=== PATIENT | female | born 1925 | race Caucasian/White ===

== ENCOUNTER 2017-01-19 10:27 | Inpatient (IN) | payer MEDICARE, OTHER ==
--- NOTE | 2017-01-19 11:40 | RAD ---
2 VIEWS LEFT HUMERUS: Date: 01/19/17 HISTORY: Left arm pain after a fall. FINDINGS: At the base of the humeral head, region of humeral neck, there is suggestion of a mildly impacted fr acture. No additional fracture is seen and there is no dislocation seen on this exam. IMPRESSION: Mildly impacted fracture proximal left humerus in region of humeral head. Dedicated views left shoul ama are suggested for further evaluation. POS: [facility]
--- NOTE | 2017-01-19 11:42 | RAD ---
THREE VIEWS LEFT ANKLE: COMPARISON: None. HISTORY: Left ankle pain from a fall this morning. FINDINGS: Three views of the left ankle show moderate diffuse soft tissue swelling. There is a ossific fragme nt adjacent to the medial malleolus which is likely sequelae from a remote trauma. No obvious acute fracture is seen. No dislocation is present. IMPRESSION: Soft tissue swelling without acute osseous abnormality. POS: [facility]
--- NOTE | 2017-01-19 11:46 | RAD ---
THREE VIEWS OF THE LEFT FOOT: COMPARISON: None. HISTORY: Left foot pain from a fall this morning. FINDINGS: Three views of the left foot show no evidence of acute fracture or dislocation. Mild soft tissue sw elling is seen. No degenerative changes are present. IMPRESSION: No evidence of acute osseous abnormality. POS: [facility]
--- NOTE | 2017-01-19 11:48 | RAD ---
FOUR VIEWS OF THE RIGHT KNEE: COMPARISON: None. HISTORY: Right knee pain after falling this morning. FINDINGS: Four views of the right knee show no evidence of acute fracture or dislocation. Small osteophytes a re seen in all 3 compartments consistent with osteoarthritis. Mild soft tissue swelling is seen. N o knee effusion is seen. IMPRESSION: Mild right osteoarthritis without acute osseous abnormality. POS: [facility]
--- NOTE | 2017-01-19 12:16 | RAD ---
THREE VIEWS OF THE LEFT SHOULDER 01/19/2017 HISTORY: Left shoulder pain, post fall this morning. COMPARISON: Compared to views of the humerus on 01/19/2017. FINDINGS: There is cortical irregularity involving the left proximal humerus, in the region of the neck of the humerus. Findings are most likely related to a mildly impacted fracture, better visualized on view s of the humerus, also obtained on this date. No additional fracture is seen. There is no evidence of a dislocation. There is osteopenia present. IMPRESSION: Mildly impacted fracture involving the left humeral neck. POS: [facility]
[2017-01-19] MEDS ORDERED: traMADol HCl 50 MG TAB PO PRN (13:03)
[2017-01-19] MEDS ORDERED: Levothyroxine Sodium 125 MCG TAB PO SCH (13:15)
[2017-01-19 14:11] VITALS: BMI 23.5
[2017-01-19] MEDS ORDERED: Milk Of Magnesia 30 ML UDCUP PO PRN (20:04)
[2017-01-19] MEDS ORDERED: Ondansetron ODT 4 MG TAB PO PRN (20:04)
[2017-01-19] MEDS: Naproxen 500 MG TAB PO SCH (21:04)
[2017-01-19] MEDS: Famotidine 20 MG TAB PO SCH (21:04)
[2017-01-19] MEDS: Gabapentin 100 MG CAP PO SCH (21:04)
--- NOTE | 2017-01-20 01:22 | HP ---
DATE OF ADMISSION: 01/19/2017 HISTORY OF PRESENT ILLNESS: Ms. Navarrete is a very pleasant 89-year-old white female that fell this morning. She ended up having a significant injury to her left forehead. She was seen in the emergency room, found to have a proximal humeral fracture. She was admitted to the hospital, because she had no one to go home to and she was unable to care for herself at all. The patient was admitted for neuro, vital signs, and pain management to my service. She is a regular patient of mine from [facility]. PAST MEDICAL HISTORY: Positive for: 1. Hypothyroidism. 2. Shingles in 12/2008 with left facial distribution. 3. Low back pain. 4. Neck pain. 5. Cervical anterior laminectomy, C7 through T1. 6. Knee pain with knee injection performed. PAST SURGICAL HISTORY: 1. Tonsillectomy, 1946. 2. Colonoscopy, 1997. FAMILY HISTORY: Reveals patient's father of colon cancer at age 67. Patient's mother at 81 of colon cancer. Patient had five brothers, four of lung cancer; three sisters, one had breast cancer, one diagnosed with regular cancer. PRESENT MEDICATIONS: Revealed the patient is on levothyroxine 125 mcg a day, Gabapentin 100 mg 1 at bedtime, tramadol 50 mg 1-2 tabs q.6 hours p.r.n. severe shingles pain, multivitamin, Lotrisone, and Naprosyn 500 mg b.i.d. ALLERGIES: The patient has allergies to PENICILLIN. SOCIAL HISTORY: Reveals the patient does not smoke, does not drink. REVIEW OF SYSTEMS: Positive for pain in the left shoulder. No fever, chills, sweats, weight change, or headaches are noted. Patient denies any visual changes. Patient denies any hearing changes. Patient denies any chest pain or rapid or slow heartbeat. Patient denies any significant edema. Denies any orthopnea or dyspnea on exertion. Patient denies any respiratory problems including cough, cold, or congestion. Patient denies any nausea, vomiting, diarrhea, bloody or black tarry stools. Patient denies any hematuria, nocturia , frequency, dysuria, or incontinence. Patient does complain of left shoulder pain and left arm pain. Denies any other significant problems. PHYSICAL EXAMINATION: GENERAL: Reveals a well-developed, well-nourished very pleasant white female in no apparent distress at this time. HEENT: Reveals normocephalic and nontraumatic cranium. Pupils are equally round and reactive. Extraocular movements intact. Nose and throat are slightly dry. NECK: Supple without masses, nodes, or bruits. CHEST: Clear to auscultation. No rales, rhonchi, or wheezes are heard. HEART: Reveals a regular rate and rhythm without murmurs, gallops, or rubs. ABDOMEN: Soft, nontender without organomegaly. Normal bowel sounds are noted. : Deferred. EXTREMITIES: Revealed left proximal humeral fracture and left ankle sprain. ASSESSMENT: 1. Fracture. 2. Pain management. 3. Hypothyroidism. 4. Neuropathy. 5. Shingles. 6. Arthritis. PLAN: The patient will be admitted at this time. We will control her pain with pain management,. We will consult PT and OT. We will start to arrange some type of assisted living or home nursing care.. QIAN
[2017-01-20] MEDS: traMADol HCl 50 MG TAB PO PRN ×2 (02:11→20:57)
[2017-01-20] MEDS: Levothyroxine Sodium 125 MCG TAB PO SCH (06:22)
[2017-01-20] MEDS: Gabapentin 100 MG CAP PO SCH ×2 (08:32→20:57)
[2017-01-20] MEDS: Famotidine 20 MG TAB PO SCH ×2 (08:32→20:57)
[2017-01-20] MEDS: Naproxen 500 MG TAB PO SCH ×2 (08:32→20:55)
[2017-01-20] MEDS: GLUCOSAMINE HCL 500 MG PO SCH (08:33)
--- NOTE | 2017-01-20 10:08 | PRG ---
DATE OF SERVICE: 01/20/2017 HISTORY OF PRESENT ILLNESS: Ms. Navarrete is a very pleasant 89-year-old white female that was at home when she somehow fell. She had a resultant proximal humeral neck fracture. She was seen in the em ergency room, evaluated and found to have a proximal humeral fracture and required sutures on her le ft forehead and on her chin. She is still extremely weak and physical therapy is working with her t o get her stronger. We are working with her insurance company to get her into a swing bed. SUBJECTIVE: The patient states she is doing better. She feels better. Her arm still hurts quite a bit. She ate part of her breakfast. She has no complaints today. PHYSICAL EXAMINATION: VITAL SIGNS: Blood pressure this morning 132/62, pulse 72-73, respirations 16-20, O2 sat 93-98%. T -max 97.8. GENERAL: This is a well-developed, well-nourished, very pleasant, thin white female in no apparent distress at this time. HEENT: Reveals normocephalic, nontraumatic cranium. The pupils are equally round and reactive. Ex traocular movements intact. Nose and throat are slightly dry. Left forehead sutures are looking go od, clear, not red, not swollen, not draining out pussy, the chin incision also seems to be healing well, not really inflamed or pussy. NECK: Supple, without masses, nodes or bruits. The patient is achy around her neck. LUNGS: Chest is clear to auscultation. No rales, rhonchi or wheezes are heard. No cough is noted. The patient has some mild chest wall tenderness from her fall, but otherwise, no problems. CARDIOVASCULAR: Heart reveals a regular rate and rhythm without murmurs, gallops or rubs. ABDOMEN: Soft, nontender, without organomegaly, normal bowel sounds are noted. No rebound or guard ing is noted. : Deferred. EXTREMITIES: Reveal left proximal humeral neck fracture. Left mild ankle sprain. IMPRESSION: 1. Left proximal humeral fracture. 2. Generalized weakness. 3. Pain management. 4. Hypothyroidism. 5. Neuropathy. 6. Shingles. 7. Arthritis. PLAN: 1. The patient will be continued for pain management. 2. We will discuss swing bed with the patient and her daughter and they are amenable to that. We w ill see if her insurance will allow that. . 3. Continue with pain control as needed. 4. Continue hanging arm sling for left proximal humeral fracture. 5. Continue DVT and stress ulcer prophylaxis. 6. Continue decubitus precautions. 7. Continue physical therapy and occupational therapy.
[2017-01-21] MEDS: traMADol HCl 50 MG TAB PO PRN (06:23)
[2017-01-21] MEDS: Levothyroxine Sodium 125 MCG TAB PO SCH (06:26)
[2017-01-21] MEDS: Naproxen 500 MG TAB PO SCH ×2 (08:00→21:43)
[2017-01-21] MEDS: Famotidine 20 MG TAB PO SCH ×2 (08:00→21:43)
[2017-01-21] MEDS: Gabapentin 100 MG CAP PO SCH ×2 (08:00→21:43)
[2017-01-21] MEDS: GLUCOSAMINE HCL 500 MG PO SCH (08:01)
--- NOTE | 2017-01-21 10:11 | PRG ---
DATE OF SERVICE: 01/21/2017 HISTORY OF PRESENT ILLNESS: Ms. Navarrete is a very pleasant 89-year-old white female that somehow fel l at home. She had resultant proximal humeral neck fracture. She was seen in the emergency room an d found to have quite a bit of pain, requiring sutures on her forehead and her chin. She was extrem kayode weak and unable to walk well and therefore she was admitted to the hospital for physical therapy , occupational therapy, pain control and monitoring of vital signs. SUBJECTIVE: The patient states she is doing well. She did wake up with quite a bit of pain this mo rning in her left arm and had to have a tramadol. She has no other complaints at this time. VITAL SIGNS: Blood pressure this morning is 140/68, pulse 66-72, respirations 16-18, O2 saturation 94-98%. T-max is 97.9. PHYSICAL EXAMINATION: GENERAL: This is a well-developed, well-nourished, very pleasant white female in no apparent distre ss at this time. HEENT: Reveals a contusion with laceration left forehead, approximately 2-1/2 inches long, and a la ceration involving the chin approximately 3/4 of an inch long was sutures in both places. Otherwise , nose, and throat are clear. NECK: Supple, without masses, nodes or bruits. CHEST: Clear to auscultation. No rales, rhonchi or wheezes are heard. CARDIOVASCULAR: Reveals a regular rate and rhythm without murmurs, gallops or rubs. ABDOMEN: Soft, nontender, without organomegaly, normal bowel sounds are noted. No rebound or guard ing is noted. : Deferred. EXTREMITIES: Reveal left proximal humeral neck fracture with pain and then left ankle sprain with p ain. IMPRESSION: 1. Left proximal humeral head and neck fracture. 2. Sprained left ankle. 3. Pain management. 4. Hypothyroidism. 5. Laceration of the left forehead and chin. 6. Neuropathy. 7. Shingles. 8. Arthritis. PLAN: 1. Continue pain management. 2. Continue physical therapy and occupational therapy. 3. Continue pain control. 4. Continue hanging arm sling for left proximal humeral fracture. 5. Continue DVT and stress ulcer prophylaxis. 6. Continue decubitus precautions. 7. Continue physical therapy and occupational therapy.
[2017-01-22] MEDS ORDERED: Levothyroxine Sodium 125 MCG TAB PO SCH (06:00)
[2017-01-22] MEDS: traMADol HCl 50 MG TAB PO PRN (06:25)
[2017-01-22 07:23] VITALS: BP 147/67; TEMP 97.4
[2017-01-22] MEDS: Naproxen 500 MG TAB PO SCH (10:00)
[2017-01-22] MEDS: Famotidine 20 MG TAB PO SCH (10:00)
[2017-01-22] MEDS: Gabapentin 100 MG CAP PO SCH (10:00)
[2017-01-22] MEDS: GLUCOSAMINE HCL 500 MG PO SCH (10:01)
--- NOTE | 2017-01-22 16:17 | DIS ---
DATE OF ADMISSION: 01/19/2017 DATE OF TRANSFER TO SWING BED: 01/22/2017 HISTORY OF PRESENT ILLNESS: Ms. Navarrete is a very pleasant 89-year-old white female that somehow fel l at home. She had a results of proximal humeral neck fracture. She was seen in the emergency room , found to have quite a bit of pain and significant weakness. She was admitted to the hospital for physical therapy, occupational therapy, pain control, and treatment of her fracture. She has done very well.. Today, she is walking around. Physical therapy and occupation therapy bot h noticed that she has difficulty with her right leg, seeming to shuffle and drag at times and that may be the culprit why she fell. She has no complaints today and states her left arm is feeling bet ter, especially with pain medicine. She is eating well and working well with therapy. She has not made any of her PT or OT gains or goals. OBJECTIVE: VITAL SIGNS: Today revealed blood pressure is 147/67, pulse 69-72, respirations 16-20, and O2 sat 9 6% to 100%, T-max of 98.2. PHYSICAL EXAMINATION: GENERAL: This is a well-developed, well-nourished, thin white female, in no apparent distress at th is time. HEENT: Reveals normocephalic, nontraumatic cranium. Pupils are equal, round, and reactive. Extrao cular movements intact. Nose and throat are slightly dry. NECK: Supple, without masses, nodes or bruits. CHEST: Clear to auscultation, no rales, rhonchi or wheezes are heard. HEART: Reveals a regular rate and rhythm without murmurs, gallops or rubs. ABDOMEN: Soft, nontender, without organomegaly. Normal bowel sounds. No rebound or guarding is no cesar. GENITOURINARY: Deferred. EXTREMITIES: 1. Left proximal humeral neck fracture with pain. 2. Left ankle sprain. 3. Weakness in the right leg. IMPRESSION: 1. Left proximal humeral head and neck fracture. 2. Sprain, left ankle. 3. Pain management. 4. Hypothyroidism. 5. Laceration in the left forehead and the chin. 5. Neuropathy. 6. Shingles. 7. Arthritis. PLAN: 1. Continue physical therapy and occupational therapy. 2. Continue pain management. 3. Continued pain control. 4. Continue hanging arm sling for left proximal humeral fracture. 5. Splinting for the left ankle. 6. Continue DVT and stress ulcer prophylaxis. 7. Continue decubitus precaution. 8. Continue physical therapy and occupational therapy. 9. Transfer to swing bed for continue therapy. DISCHARGE MEDICATIONS: Include the following, 1. Pepcid 20 mg b.i.d. 2. Gabapentin 100 mg b.i.d. 3. Levothyroxine 125 mcg a day. 4. Milk of Magnesia p.r.n. 5. Naprosyn 500 mg b.i.d. with food. 6. Lotrisone. 7. Glucosamine 1 each a day. 8. Tramadol 50 mg q.i.d. p.r.n. for mild to moderate pain.
== END 2017-01-22 11:13 | disposition swing bed (61) | DRG 563 ==
LOC: NAV ERS 10:27 → NAV ACUTE 12:55
PROVIDERS: ADMIT Family Medicine; ATTEND Family Medicine
PROC: 2W39XYZ Immobilization of Left Upper Extremity using Other Device (ICD-10-PCS; principal; 2017-01-19)
PROC: 0HQ1XZZ Repair Face Skin, External Approach (ICD-10-PCS; 2017-01-19)
DX: S42.292A Other displaced fracture of upper end of left humerus, initial encounter for closed fracture (principal); G62.9 Polyneuropathy, unspecified; B02.9 Zoster without complications; S93.402A Sprain of unspecified ligament of left ankle, initial encounter; S01.81XA Laceration without foreign body of other part of head, initial encounter; W01.0XXA Fall on same level from slipping, tripping and stumbling without subsequent striking against object, initial encounter; E03.9 Hypothyroidism, unspecified; M19.90 Unspecified osteoarthritis, unspecified site; R26.2 Difficulty in walking, not elsewhere classified; Z88.0 Allergy status to penicillin
CPT/HCPCS: G8978-GP-CJ; G8979-GP-CI

== ENCOUNTER 2017-01-22 09:52 | Inpatient (IN) | payer MEDICARE, OTHER ==
[2017-01-22] MEDS ORDERED: Milk Of Magnesia 30 ML UDCUP PO PRN (15:08)
[2017-01-22] MEDS ORDERED: Ondansetron ODT 4 MG TAB PO PRN (15:08)
[2017-01-22] MEDS: Gabapentin 100 MG CAP PO SCH (21:02)
[2017-01-22] MEDS: Naproxen 500 MG TAB PO SCH (21:02)
[2017-01-22] MEDS: traMADol HCl 50 MG TAB PO PRN (21:02)
[2017-01-22] MEDS: Famotidine 20 MG TAB PO SCH (21:02)
[2017-01-23] MEDS: Levothyroxine Sodium 125 MCG TAB PO SCH (06:13)
[2017-01-23] MEDS: Naproxen 500 MG TAB PO SCH ×2 (09:09→21:00)
[2017-01-23] MEDS: Famotidine 20 MG TAB PO SCH ×2 (09:09→21:00)
[2017-01-23] MEDS: Gabapentin 100 MG CAP PO SCH ×2 (09:09→21:00)
[2017-01-23] MEDS: GLUCOSAMINE 500 MG PO SCH (09:10)
[2017-01-23] MEDS ORDERED: Milk Of Magnesia 30 ML UDCUP PO PRN (09:58)
[2017-01-23] MEDS ORDERED: traMADol HCl 50 MG TAB PO PRN (09:58)
[2017-01-23] MEDS ORDERED: Ondansetron ODT 4 MG TAB PO PRN (09:58)
--- NOTE | 2017-01-23 15:30 | HP ---
DATE OF ADMISSION: 01/22/2017 HISTORY OF PRESENT ILLNESS: Ms. Navarrete is a very pleasant 89-year-old white female that unfortunate ly fell at home. She ended up having a laceration to the forehead and chin and also a proximal sandrita ral fracture. She was admitted to [facility] for physical therapy and occupational therapy. She is very weak and found that she would benefit significantly from continued physical th erapy and occupational therapy, so therefore she is admitted to the swing bed. PAST MEDICAL HISTORY: Positive for, 1. Low back pain. 2. Neck pain. 3. Fracture of the left proximal humerus. 4. Shingles in 2008 with facial distribution. 5. Hypothyroidism. 6. Cervical anterior laminectomy C7 through T1. 7. Knee pain. PAST SURGICAL HISTORY: 1. Tonsillectomy in 194. 2. Colonoscopy in 1997. FAMILY HISTORY: Reveals patient of colon cancer at age 69. Patient's mother of colon can cer at age 81. Patient has 5 brothers, out of which of cancer. Three sisters, one had breast cancer and one diagnosed with rectal cancer. PRESENT MEDICATIONS: Reveals the patient is presently on the followin. Levothyroxine 125 mcg daily. 2. Naprosyn 500 mg a day. 3. Gabapentin 100 mg at bedtime. 4. Tramadol 1-2 q.6 h with a Tylenol p.r.n., shingles pain. 5. Multivitamin daily. 6. Lotrisone as needed. ALLERGIES: Reveals patient is allergic to PENICILLIN. SOCIAL HISTORY: Reveals patient does not smoke, does not drink alcohol, does not use illicit drugs. REVIEW OF SYSTEMS: Reveal the patient complains of no fever, no chills, no sweats, no weight change s, no headaches. She does note that she has left shoulder pain. She denies any visual changes. Sh e denies any hearing changes. She does not use hearing aids. She denies any respiratory problems i ncluding rales, rhonchi, wheezes, cough or shortness of breath. She denies any chest pain, denies a ny heart pain, denies any indigestion, denies rapid or irregular heartbeat. Denies any nausea, vomi ting, diarrhea or constipation. Denies any bloody or black tarry stools. Denies any genitourinary problems including urgency, frequency, dysuria or hematuria. She states musculoskeletal dhillon, she d oes have left shoulder pain and left arm pain. She has no other significant arthritic-type pains. PHYSICAL EXAMINATION: GENERAL: Reveals a well-developed, well-nourished, very pleasant white female, in no apparent distr ess at this time. HEENT: Reveals normocephalic, nontraumatic cranium. Pupils are equal, round, and reactive. Extrao cular movements intact. Nose and throat are slightly dry. NECK: Supple without masses, nodes, or bruits. CHEST: Clear to auscultation. No rales, rhonchi, wheezes or cough is heard. HEART: Reveals a regular rate and rhythm without murmurs, gallops, or rubs. ABDOMEN: Soft, nontender without organomegaly. Normal bowel sounds are noted. No rebound or guard ing is noted. GINETOURONARY: Deferred. EXTREMITIES: Reveal left proximal humeral fracture and a hanging arm sling. ASSESSMENT: 1. Proximal left humeral arm fracture in a hanging arm sling. 2. Pain management. 3. Hypothyroidism. 4. Generalized weakness. 5. Neuropathy. 6. Shingles. 7. Arthritis. PLAN: 1. Patient will be transferred to swing bed. 2. We will continue with pain management. 3. Continue physical therapy and occupational therapy. Continue hanging arm sling. 4. Evaluation by case management for some type of home nursing care, assisted living, or relative w ith her.
[2017-01-23] MEDS ORDERED: Gabapentin 100 MG CAP PO SCH (21:00)
[2017-01-23] MEDS: traMADol HCl 50 MG TAB PO PRN (21:00)
[2017-01-23] MEDS ORDERED: Famotidine 20 MG TAB PO SCH (21:00)
[2017-01-23] MEDS ORDERED: Naproxen 500 MG TAB PO SCH (21:00)
[2017-01-24] MEDS: Levothyroxine Sodium 125 MCG TAB PO SCH (06:00)
[2017-01-24] MEDS: Famotidine 20 MG TAB PO SCH ×2 (08:53→21:03)
[2017-01-24] MEDS: Gabapentin 100 MG CAP PO SCH ×2 (08:53→21:03)
[2017-01-24] MEDS: Naproxen 500 MG TAB PO SCH ×2 (08:54→21:02)
[2017-01-24] MEDS: GLUCOSAMINE 500 MG PO SCH (08:58)
[2017-01-24] MEDS ORDERED: GLUCOSAMINE HCL 500 MG PO SCH (09:00)
[2017-01-24] MEDS ORDERED: Levothyroxine Sodium 125 MCG TAB PO SCH (09:00)
--- NOTE | 2017-01-24 17:14 | PRG ---
DATE OF SERVICE: 01/24/2017 SUBJECTIVE: Ms. Navarrete is doing well. Denies any complaints, resting comfortably. She states her left arm is doing better. Her balance is improving. OBJECTIVE: VITAL SIGNS: She is afebrile, heart rate is 62, respirations 16, oxygen saturation 99%, blood press ure 138/66. CARDIOVASCULAR: S1, S2 plus. RESPIRATORY: Normal vesicular breath sounds. ABDOMEN: Soft, nontender, bowel sounds heard in all quadrants. EXTREMITIES: Without cyanosis or clubbing. Left arm in a sling. IMPRESSION: 1. Hypothyroidism. 2. Left humerus fracture. 3. Peripheral neuropathy. 4. Deconditioning. 5. Degenerative joint disease. PLAN: 1. Continue physical therapy. 2. Continues splinting of her left arm. 3. DVT and stress ulcer prophylaxis. 4. Decubitus precautions. 5. Nutritional support. 6. Routine laboratory values.
[2017-01-24] MEDS: traMADol HCl 50 MG TAB PO PRN (21:02)
[2017-01-25] MEDS: Levothyroxine Sodium 125 MCG TAB PO SCH (05:59)
[2017-01-25] MEDS: Famotidine 20 MG TAB PO SCH ×2 (08:34→20:43)
[2017-01-25] MEDS: Naproxen 500 MG TAB PO SCH ×2 (08:34→20:43)
[2017-01-25] MEDS: GLUCOSAMINE 500 MG PO SCH (08:34)
[2017-01-25] MEDS: Gabapentin 100 MG CAP PO SCH ×2 (08:34→20:43)
--- NOTE | 2017-01-25 12:58 | PRG ---
DATE OF SERVICE: 01/25/2017. SUBJECTIVE: Ms. Navarrete is doing well. She is complaining of constipation and wants to get back on her MiraLax. No other concerns or questions. Discussed with nursing. OBJECTIVE: VITAL SIGNS: She is afebrile, heart rate is 64, respirations are 20, oxygen saturation 99%, blood p ressure is 114/58. CARDIOVASCULAR: S1, S2 plus. RESPIRATORY: Normal vesicular breath sounds. ABDOMEN: Soft, nontender, bowel sounds heard in all quadrants. EXTREMITIES: Without cyanosis or clubbing. IMPRESSION: 1. Constipation. 2. Left humerus fracture. 3. Hypothyroidism. 4. Peripheral neuropathy. 5. Deconditioning. PLAN: 1. MiraLax 17 grams in 8 ounces of water daily. 2. Continue splinting of left thumb. 3. Physical therapy. 4. Nutritional support. 5. Routine laboratory values. 6. Dr. Claude Lott back tonight.
[2017-01-26] MEDS: Levothyroxine Sodium 125 MCG TAB PO SCH (06:04)
[2017-01-26 06:22] VITALS: BMI 21.9
[2017-01-26] MEDS: Gabapentin 100 MG CAP PO SCH ×2 (08:54→20:54)
[2017-01-26] MEDS: Naproxen 500 MG TAB PO SCH ×2 (08:54→20:53)
[2017-01-26] MEDS: Famotidine 20 MG TAB PO SCH ×2 (08:55→20:53)
[2017-01-26] MEDS: GLUCOSAMINE 500 MG PO SCH (08:55)
--- NOTE | 2017-01-26 09:44 | PRG ---
DATE OF SERVICE: 01/26/2017 SUBJECTIVE: Ms. Navarrete is an 89-year-old white female who fell at home with laceration to her foreh ead and her chin and found to have proximal humeral fracture. She was admitted to [facility] for physical therapy and occupational therapy in the swing bed. She is somewhat stronger. She is presently showering. She has no complaints at this time. She states she is doing better. I did discuss with her daughter that she will stay here as mainly for strengthening her strength and endurance and working on her balance. OBJECTIVE: VITAL SIGNS: Today reveals, blood pressure 135/64, pulse 64-77, respirations 20, O2 sat 97% to 99%, temperature 98.1. GENERAL: This is a well-developed, well-nourished, very pleasant white female, in no apparent distr ess at this time. HEENT: Reveals normocephalic, nontraumatic cranium. Pupils are equally round and reactive. Extrao cular movements intact. Nose and throat are slightly dry. NECK: Supple, without masses, nodes or bruits. CHEST: Clear to auscultation. No rales, rhonchi or wheezes are heard. CARDIOVASCULAR: Heart reveals a regular rate and rhythm without murmurs, gallops or rubs. ABDOMEN: Soft, nontender without organomegaly. Normal bowel sounds are noted. No rebound or guard ing is noticed. The patient was constipated yesterday, back on her MiraLax. GENITOURINARY: Deferred. EXTREMITIES: Reveal left arm in a hanging arm sling. IMPRESSION: 1. Degenerative joint disease. 2. Peripheral neuropathy. 3. Left humeral fracture, left arm in hanging arm sling. 4. Hypothyroidism. 5. Generalized weakness. PLAN: 1. Continue physical therapy. 2. Continue hanging arm sling. 3. Continue physical therapy and occupational therapy. 4. Continue deep venous thrombosis and stress ulcer prophylaxis. 5. Continue decubitus precautions. 6. Encouraged the patient to eat.
[2017-01-26] MEDS: traMADol HCl 50 MG TAB PO PRN (20:53)
[2017-01-27] MEDS: traMADol HCl 50 MG TAB PO PRN ×2 (01:26→20:42)
[2017-01-27] MEDS: Levothyroxine Sodium 125 MCG TAB PO SCH (06:28)
[2017-01-27] MEDS: Naproxen 500 MG TAB PO SCH ×2 (09:15→20:42)
[2017-01-27] MEDS: GLUCOSAMINE 500 MG PO SCH (09:15)
[2017-01-27] MEDS: Gabapentin 100 MG CAP PO SCH ×2 (09:15→20:42)
[2017-01-27] MEDS: Famotidine 20 MG TAB PO SCH ×2 (09:15→20:42)
--- NOTE | 2017-01-27 13:55 | PRG ---
DATE OF SERVICE: 01/27/2017 HISTORY OF PRESENT ILLNESS: Ms. Navarrete is a very pleasant 89-year-old white female who fell at home with laceration to her forehead and chin. She is also found to have a fracture of the left humeral neck. She was admitted to [facility] for swing bed for physical therapy and occupa tional therapy. She is getting stronger. She still has some significant weakness and some balance problems, but that is improving. She has no complaints today. OBJECTIVE: VITAL SIGNS: Today reveal blood pressure 102/52, pulse 70-74, respirations 18-20, O2 sat 94%-97%. T-max is 98.1. GENERAL: This is a well-developed, well-nourished, very pleasant white female in no apparent distre ss at this time. HEENT: Reveals normocephalic, nontraumatic cranium. Pupils are equal, round, and reactive. Extrao cular movements intact. Nose and throat are slightly dry. NECK: Supple, without masses, nodes or bruits. CHEST: Clear to auscultation. No rales, rhonchi or wheezes are heard. CARDIOVASCULAR: Heart reveals a regular rate and rhythm without murmurs, gallops or rubs. ABDOMEN: Obese, soft, nontender, without organomegaly. Normal bowel sounds are noted. No rebound or guarding is noted. : Deferred. EXTREMITIES: Reveal no clubbing, cyanosis or edema. ASSESSMENT: 1. Degenerative joint disease. 2. Peripheral neuropathy. 3. Humeral fracture, left arm hanging arm sling. 4. Hypothyroidism. 5. Generalized weakness. PLAN: 1. Continue physical therapy. 2. Continue hanging arm sling. 3. Continue physical therapy and occupational therapy. 4. Continue deep venous thrombosis and stress ulcer prophylaxis. 5. Continue decubitus precautions. 6. Encourage the patient to eat.
[2017-01-27] MEDS: Polyethylene Glycol 3350 17 GM Packet PO PRN (20:42)
[2017-01-28] MEDS: Levothyroxine Sodium 125 MCG TAB PO SCH (06:21)
[2017-01-28] MEDS: Famotidine 20 MG TAB PO SCH ×2 (08:57→20:41)
[2017-01-28] MEDS: Naproxen 500 MG TAB PO SCH ×2 (08:57→20:41)
[2017-01-28] MEDS: GLUCOSAMINE 500 MG PO SCH (08:57)
[2017-01-28] MEDS: Gabapentin 100 MG CAP PO SCH ×3 (08:58→20:41)
--- NOTE | 2017-01-28 18:47 | PRG ---
DATE OF ADMISSION: 01/22/2017 DATE OF SERVICE: 01/27/2017 HISTORY OF PRESENT ILLNESS: Ms. Navarrete is a very pleasant 89-year-old white female who fell at home with a resultant laceration to her forehead and chin. She also was found to have a fracture of the left humeral neck proximally. She was admitted to [facility] for physical therapy and oc cupational therapy and to increase her strength, stamina and especially her balance. She is doing much better. She states she does pretty well in the morning and in the afternoon she i s very tired, but I encouraged her to continue working hard in the afternoon and this was going to m shahnaz her much stronger. She has no complaints today. PHYSICAL EXAMINATION: VITAL SIGNS: Today reveal blood pressure is 140/62, pulse 67-69, respirations 18, O2 sat 95%-98%. T-max is 97.4. GENERAL: This is a well-developed, well-nourished, very pleasant white female, seems to be getting much stronger and certainly is eating better. HEENT: Reveals normocephalic, nontraumatic cranium. Pupils are equally round and reactive. Extrao cular movements intact. Nose and throat are slightly dry. NECK: Supple, without masses, nodes or bruits. LUNGS: Chest is clear to auscultation. No rales, no rhonchi, no wheezes are heard. No cough is he mario. CARDIOVASCULAR: Reveals a regular rate and rhythm without murmurs, gallops or rubs. ABDOMEN: Soft, nontender, without organomegaly, normal bowel sounds are noted. No rebound or guard ing is noted. GENITOURINARY: Deferred. EXTREMITIES: 1. Reveal left hanging arm sling from the proximal humeral fracture. 2. Generalized weakness, lower extremities, but improving quite a bit. 3. Slight swelling in the lower extremities. IMPRESSION: 1. Humeral fracture, left arm proximally presently in the left arm sling. 2. Severe degenerative joint disease. 3. Peripheral neuropathy. 4. Hypothyroidism. 5. Generalized weakness. 6. Poor balance. PLAN: 1. Continue physical therapy and occupational therapy. 2. Continue hanging arm sling. 3. Continue DVT and stress ulcer prophylaxis. 4. Continue decubitus precautions. 5. Up in chair as much as possible. 6. Encourage the patient continues to eating.
[2017-01-28] MEDS: traMADol HCl 50 MG TAB PO PRN (20:43)
[2017-01-29] MEDS: Levothyroxine Sodium 125 MCG TAB PO SCH (05:46)
[2017-01-29] MEDS: GLUCOSAMINE 500 MG PO SCH (08:36)
[2017-01-29] MEDS: Famotidine 20 MG TAB PO SCH ×2 (08:36→21:01)
[2017-01-29] MEDS: Naproxen 500 MG TAB PO SCH ×2 (08:37→21:01)
[2017-01-29] MEDS: Gabapentin 100 MG CAP PO SCH ×2 (08:38→21:01)
--- NOTE | 2017-01-29 10:58 | PRG ---
DATE OF SERVICE: 01/29/2017 HISTORY OF PRESENT ILLNESS: Ms. Navarrete is a very pleasant 89-year-old white female that unfortunate ly fell at home with a resultant left proximal humeral neck fracture. She had resultant laceration of her forehead and chin also. She was seen and admitted to the hospital and admitted to [facility] for physical therapy and occupational therapy. Her strength and stamina are good, but her balance i s poor. She also has some tremors at times. She states she is doing better. She is trying to eat better. She states she is getting stronger. She has no complaints today. PHYSICAL EXAMINATION: VITAL SIGNS: Today reveal blood pressure 153/68, pulse 69-74, respirations 18-20, O2 saturation 95- 99%, temperature 97.8. GENERAL: This is a well-developed, well-nourished, somewhat feeble white female in no apparent dist ress at this time. HEENT: Reveals normocephalic, nontraumatic cranium. Pupils are equally round and reactive. Extrao cular movements intact. Nose and throat are slightly dry. NECK: Supple, without masses, nodes or bruits. LUNGS: Chest is clear to auscultation. No rales, rhonchi or wheezes are heard. No cough is heard. CARDIOVASCULAR: Reveals a regular rate and rhythm without murmurs, gallops or rubs. ABDOMEN: Soft, nontender, without organomegaly, normal bowel sounds are noted. No rebound or guard ing is noted. GENITOURINARY: Deferred. EXTREMITIES: Reveal left hanging arm sling from her proximal humeral neck fracture. Generalized we akness. Lower extremity weakness, improving. Upper extremity tremor. Slight swelling in lower extremities. IMPRESSION: 1. Proximal humeral neck fracture, presently in a hanging arm sling. 2. Severe degenerative joint disease. 3. Peripheral neuropathy. 4. Status post shingles with occasional shingle pain over her forehead. 5. Hypothyroidism. 6. Generalized weakness. 7. Poor balance. PLAN: 1. Continue physical therapy and occupational therapy. 2. Continue hanging arm sling. 3. Continue DVT and stress ulcer prophylaxis. 4. Continue decubitus precautions. 5. Out of bed and up in a chair as much as possible. 6. Continue to encourage the patient to eat.
[2017-01-29] MEDS: traMADol HCl 50 MG TAB PO PRN (21:01)
[2017-01-30] MEDS: Levothyroxine Sodium 125 MCG TAB PO SCH (06:46)
[2017-01-30] MEDS: traMADol HCl 50 MG TAB PO PRN (09:05)
[2017-01-30] MEDS: Gabapentin 100 MG CAP PO SCH ×2 (09:06→21:30)
[2017-01-30] MEDS: Naproxen 500 MG TAB PO SCH ×2 (09:06→21:30)
[2017-01-30] MEDS: Famotidine 20 MG TAB PO SCH ×2 (09:06→21:30)
[2017-01-30] MEDS: GLUCOSAMINE 500 MG PO SCH (09:08)
--- NOTE | 2017-01-30 10:05 | PRG ---
DATE OF SERVICE: 01/30/2017 HISTORY OF PRESENT ILLNESS: Ms. Navarrete is a very pleasant 89-year-old white female that unfortunate ly fell at home with a resultant left proximal humeral neck fracture. She had a resultant laceratio n of forehead and chin also. She was seen by me, admitted to the hospital for physical therapy and occupational therapy and [facility] therapy. She is actually doing very well. She is able to walk. She is beginning to get more st able. She is walking much more comfortably with her cane. She has no complaints at this time. I d id discuss her therapy with PT and OT and they felt that she would do very well and since she lives at home, they continued therapy and estimated discharge sometimes the end of next week. She has no complaints today. PHYSICAL EXAMINATION: VITAL SIGNS: Reveal blood pressure 117/56, pulse 64-82, respirations 17-20, O2 sat 94%-97%, tempera ture max is 98.1. GENERAL: This is a well-developed, well-nourished, thin white female in no apparent distress at thi s time. HEENT: Reveals normocephalic, nontraumatic cranium. Pupils are equally round and reactive. Extrao cular movements intact. Nose and throat are slightly dry. NECK: Supple, without masses, nodes or bruits. LUNGS: Chest is clear to auscultation. No rales, rhonchi or wheezes are heard. CARDIOVASCULAR: Reveals a regular rate and rhythm without murmurs, gallops or rubs. ABDOMEN: Soft, nontender, without organomegaly, normal bowel sounds are noted. No rebound or guard ing is noted. GENITOURINARY: Deferred. EXTREMITIES: Reveal no clubbing, cyanosis or edema. ASSESSMENT: 1. Proximal humeral neck fracture on the left side presently and hanging arm sling. 2. Severe degenerative joint disease. 3. Peripheral neuropathy. 4. Status post occasional shingles pain over the forehead, requiring gabapentin. 5. Hypothyroidism. 6. Generalized weakness. 7. Poor balance. PLAN: 1. Continue physical therapy and occupational therapy. 2. Continue hanging arm sling. 3. Continue deep venous thrombosis and stress ulcer prophylaxis. 4. Continue decubitus precautions. 5. Up and out of the bed, up in a chair as much as possible. 6. Encourage the patient to eat.
[2017-01-31] MEDS: Levothyroxine Sodium 125 MCG TAB PO SCH (06:43)
[2017-01-31] MEDS: Famotidine 20 MG TAB PO SCH ×2 (08:53→21:11)
[2017-01-31] MEDS: Gabapentin 100 MG CAP PO SCH ×2 (08:53→21:11)
[2017-01-31] MEDS: Naproxen 500 MG TAB PO SCH ×2 (08:53→21:11)
[2017-01-31] MEDS: Polyethylene Glycol 3350 17 GM Packet PO PRN (08:53)
[2017-01-31] MEDS: GLUCOSAMINE 500 MG PO SCH (08:54)
--- NOTE | 2017-01-31 16:40 | PRG ---
DATE OF SERVICE: 01/31/2017. SUBJECTIVE: Ms. Navarrete is doing well. Denies any complaints, resting comfortably, tolerating her t herapy. She states that she slowly, but surely getting stronger. OBJECTIVE: VITAL SIGNS: She is afebrile, heart rate is 70, respirations 18, oxygen saturation is 98%, blood pr essure is 131/68. CARDIOVASCULAR: S1, S2 plus. RESPIRATORY: Normal vesicular breath sounds. ABDOMEN: Soft, nontender, bowel sounds heard in all quadrants. EXTREMITIES: Without cyanosis or clubbing. Left arm in a sling. IMPRESSION: 1. Left humerus fracture being managed conservatively with immobilization. 2. Degenerative joint disease. 3. Peripheral neuropathy. 4. Hypothyroidism. 5. Improving deconditioning. PLAN: 1. Continue physical therapy. 2. Pain control. 3. Deep venous thrombosis and stress ulcer prophylaxes. 4. Decubitus precautions. 5. Routine laboratory values.
[2017-02-01] MEDS: Levothyroxine Sodium 125 MCG TAB PO SCH (06:37)
[2017-02-01] MEDS: Naproxen 500 MG TAB PO SCH ×2 (08:56→21:10)
[2017-02-01] MEDS: Gabapentin 100 MG CAP PO SCH ×2 (08:56→21:11)
[2017-02-01] MEDS: Famotidine 20 MG TAB PO SCH ×2 (08:56→21:11)
[2017-02-01] MEDS: GLUCOSAMINE 500 MG PO SCH (08:57)
--- NOTE | 2017-02-01 09:26 | PRG ---
DATE OF SERVICE: 02/01/2017. SUBJECTIVE: Ms. Navarrete is doing well. Denies any complaints, resting comfortably, tolerating her m edications. OBJECTIVE: VITAL SIGNS: She is afebrile, heart rate is 68, respirations are 19, oxygen saturation 98%, blood p ressure is 127/61. CARDIOVASCULAR: S1, S2 plus. RESPIRATORY: Normal vesicular breath sounds. ABDOMEN: Soft, nontender, bowel sounds heard in all quadrants. EXTREMITIES: Without cyanosis or clubbing. Left arm in a sling. IMPRESSION: 1. Left humerus fracture. 2. Hypothyroidism. 3. Peripheral neuropathy. 4. Degenerative joint disease. 5. Improving deconditioning. PLAN: 1. Continue physical therapy. 2. Continue conservative management of her left humerus fracture. 3. DVT and stress ulcer prophylaxes. 4. Physical therapy. 5. Nutritional support. 6. Routine laboratory values.
[2017-02-01] MEDS: traMADol HCl 50 MG TAB PO PRN (21:10)
[2017-02-02] MEDS: Levothyroxine Sodium 125 MCG TAB PO SCH (06:05)
[2017-02-02] MEDS: Famotidine 20 MG TAB PO SCH ×2 (09:01→21:16)
[2017-02-02] MEDS: Gabapentin 100 MG CAP PO SCH ×2 (09:02→21:17)
[2017-02-02] MEDS: Naproxen 500 MG TAB PO SCH ×2 (09:02→21:16)
[2017-02-02] MEDS: GLUCOSAMINE 500 MG PO SCH (09:02)
--- NOTE | 2017-02-02 13:54 | PRG ---
DATE OF SERVICE: 02/02/2017 SUBJECTIVE: Ms. Nvaarrete is a very pleasant 89-year-old white female that unfortunately fell at home with a resultant left proximal humeral fracture. She eventually was admitted to [facility] for physical therapy and occupational therapy to increase her strength, stamina, and balance. She was seen walking today, her balance is much improved, but s he is still somewhat tentative. Our goal is to discharge her on Thursday or Thursday with continued o utpatient physical therapy or home health physical therapy and occupational therapy. She has no complaints today. Her daughter is in the room, Radha and we discussed her going home an d making arrangements for 24-hour care at home. PHYSICAL EXAMINATION: VITAL SIGNS: Reveals blood pressure 146/66, pulse 68-74, respirations 19-20, and O2 sat 96% to 98%, temperature max is 98.2. GENERAL: This is a well-developed, well-nourished, very pleasant, thin white female in no apparent distress at this time. HEENT: Reveals normocephalic, nontraumatic cranium. Pupils are equal, round, and reactive. Extrao cular movements intact. Nose and throat are slightly dry. NECK: Supple, without masses, nodes or bruits. CHEST: Clear to auscultation. No rales, rhonchi or wheezes are heard. CARDIOVASCULAR: Reveals a regular rate and rhythm without murmurs, gallops or rubs. ABDOMEN: Soft, nontender, without organomegaly. Normal bowel sounds are noted. No rebound or guar ding is noted. : Deferred. EXTREMITIES: Generalized weakness, but much improved balance. She still walks tentatively with a c ane. IMPRESSION: 1. Proximal humeral neck fracture on the left side, presently in the hanging arm sling. 2. Degenerative joint disease. 3. Peripheral neuropathy. 4. Status post occasional shingles pain over the forehead, requiring gabapentin. 5. Hypothyroidism. 6. Generalized weakness. 7. Poor balance. PLAN: 1. Continue physical therapy and occupational therapy. 2. Continue hanging arm sling. 3. Appointment with Dr. Ted Stuart on 02/10/2017, next Thursday. 4. Continue deep venous thrombosis and stress ulcer prophylaxis. 5. Continue decubitus precautions. 6. Up and out of bed in the chair as much as possible. 7. Care the patient to eat.
[2017-02-02] MEDS: traMADol HCl 50 MG TAB PO PRN (21:16)
[2017-02-03] MEDS: Levothyroxine Sodium 125 MCG TAB PO SCH (06:10)
[2017-02-03] MEDS: Gabapentin 100 MG CAP PO SCH ×2 (08:50→20:49)
[2017-02-03] MEDS: Polyethylene Glycol 3350 17 GM Packet PO PRN (08:50)
[2017-02-03] MEDS: Naproxen 500 MG TAB PO SCH ×2 (08:50→20:49)
[2017-02-03] MEDS: Famotidine 20 MG TAB PO SCH ×2 (08:50→20:49)
[2017-02-03] MEDS: GLUCOSAMINE 500 MG PO SCH (08:52)
--- NOTE | 2017-02-03 10:17 | PRG ---
DATE OF SERVICE: 02/03/2017 HISTORY OF PRESENT ILLNESS: Ms. Navarrete is a very pleasant 89-year-old white female that [place] [facility]. She had resultant left proximal humeral fracture and a laceration to her forehead and her chin. She has done very well in [facility] for physical therapy and occupational therapy and actually the p shandra is to go home on Thursday afternoon. Unfortunately, she is not able to climb steps very well yet, so we will do home health physical therapy because she has four steps getting in and out of her linda se and outpatient will be little bit more difficult for her. She states when she gets a little bit stronger, she may sign up for the health and wellness program at [facility] and come here for further th erapy there. The patient has no complaints today. The patient's daughter is in the room, Radha and we did discuss arrangements for home assisted and we will consult [facility]. PHYSICAL EXAMINATION: VITAL SIGNS: Today reveal blood pressure is 133/63, pulse 61-71, respirations 18-19, O2 sat is 96%- 99%. T-max is 97.8. GENERAL: This is a well-developed, well-nourished, thin white female in no apparent distress at thi s time. HEENT: Reveals normocephalic, nontraumatic cranium. Pupils are equally round and reactive. Extrao cular movements intact. Nose and throat are slightly dry. NECK: Supple, without masses, nodes or bruits. CHEST: Clear to auscultation. No rales, rhonchi or wheezes are heard. CARDIOVASCULAR: Heart reveals a regular rate and rhythm without murmurs, gallops or rubs. ABDOMEN: Soft, nontender, without organomegaly, normal bowel sounds are noted. No rebound or guard ing is noted. : Deferred. EXTREMITIES: Reveal improving generalized weakness, improving balance. She still walks very tentat ively and walks with a cane, but she continued to significantly improve. Her left hanging arm cast and the fracture is much less tender. ASSESSMENT: 1. Proximal humeral neck fracture on left side, presently on a hanging arm sling, much improved. 2. Degenerative joint disease. 3. Generalized weakness. 4. Peripheral neuropathy. 5. Status post shingles pain over the forehead, requiring gabapentin at times. 6. Hypothyroidism. 7. Poor balance. PLAN: 1. Continue physical therapy and occupational therapy. 2. Continue the hanging arm sling. 3. Follow up with Dr. Ted Stuart on 02/10/2017, which is next week. 4. Continue deep venous thrombosis and stress ulcer prophylaxis. 5. Continue decubitus precautions. 6. Up and out of bed to chair as much as possible. 7. Continue to encourage the patient to eat. 8. We will consult [facility] for physical therapy and skilled.
[2017-02-03] MEDS: traMADol HCl 50 MG TAB PO PRN (20:48)
[2017-02-04 05:26] LABS: Eosinophils 11 % (0-10); Hemoglobin 10.8 g/dL (12.0-16.0); Lymphocytes 18 % (21-51); MDiff Complete? YES; Mean Corpuscular HGB CONC 33.9 g/dL (32.0-36.0); Mean Corpuscular Hemoglobin 32.5 pg (27.0-31.0); Mean Platelet Volume 6.4 fL (7.4-10.4); Monocytes 15 % (0-10); Neutrophil 56 % (42-75); PLT Morphology Comment Appears Adequate; Platelet Count 171 thou/uL (130-400); RBC Distribution Width 11.9 % (11.5-14.5); RBC Morphology Normal; Red Blood Cell (RBC) Count 3.32 mill/uL (4.20-5.40); White Blood Cell (WBC) Count 3.3 thou/uL (4.8-10.8)
[2017-02-04 05:36] LABS: ALT (SGPT) 12 U/L (0-55); AST (SGOT) 14 U/L (5-34); Albumin 3.2 g/dL (3.4-4.8); Alkaline Phosphatase 80 U/L (40-150); Anion Gap 9 mmol/L (10-20); BUN (Urea Nitrogen) 30 mg/dL (9.8-20.1); Bilirubin, Total 0.6 mg/dL (0.2-1.2); Calc. Creatinine Clearance 43 mL/min (70-130); Calcium 8.8 mg/dL (7.8-10.44); Carbon Dioxide 28 mmol/L (23-31); Chloride 106 mmol/L (98-107); Estimated GFR-MDRD 66; Glucose 88 mg/dL (83-110); Potassium 4.3 mmol/L (3.5-5.1); Protein, Total 5.2 g/dL (5.8-8.1); Sodium 139 mmol/L (136-145)
[2017-02-04] MEDS: Levothyroxine Sodium 125 MCG TAB PO SCH (06:13)
[2017-02-04] MEDS: Polyethylene Glycol 3350 17 GM Packet PO PRN (06:18)
[2017-02-04] MEDS: Famotidine 20 MG TAB PO SCH ×2 (08:56→21:30)
[2017-02-04] MEDS: Naproxen 500 MG TAB PO SCH ×2 (08:56→21:30)
[2017-02-04] MEDS: Gabapentin 100 MG CAP PO SCH ×2 (08:56→21:30)
[2017-02-04] MEDS: GLUCOSAMINE 500 MG PO SCH (08:57)
--- NOTE | 2017-02-04 10:37 | PRG ---
DATE OF SERVICE: HISTORY OF PRESENT ILLNESS: Ms. Navarrete is a very pleasant 89-year-old white female that [place] [facility]. She had a left proximal hip fracture that was placed in a hanging arm sling and she also had a l aceration to her left forehead and her chin. She is doing well. She is in physical therapy. She seemed to be getting better. Strength is getti ng better. She is walking better. She states that her left arm does not hurt as much and she began to do some exercises per PT and OT. She has no complaints today. VITAL SIGNS: Vital signs today reveal blood pressure is 134/63, pulse 61-69, respirations 18-20, O2 sat 96-99%. T-max is 98.2. PHYSICAL EXAMINATION: GENERAL: This is a well-developed, well-nourished, very pleasant white female in no apparent distre ss at this time. HEENT: Reveals normocephalic, nontraumatic cranium. Pupils are equally round and reactive. Extrao cular movements intact. Nose and throat are slightly dry. NECK: Supple, without masses, nodes or bruits. CHEST: Clear to auscultation. No rales, rhonchi or wheezes are heard. CARDIOVASCULAR: Reveals a regular rate and rhythm without murmurs, gallops or rubs. ABDOMEN: Soft, nontender, without organomegaly, normal bowel sounds are noted. No rebound or guard ing is noted. : Deferred. EXTREMITIES: Reveal no clubbing, cyanosis or edema. IMPRESSION: 1. Proximal humeral neck fracture on the left side, presently in a hanging arm sling with much less pain. 2. Degenerative joint disease. 3. Osteoporosis. 4. Generalized weakness. 5. Peripheral neuropathy. 6. Status post shingles, pain on the forehead requiring p.r.n. gabapentin. 7. Hypothyroidism. 8. Poor balance, much improved. PLAN: 1. Continue physical therapy and occupational therapy. 2. Continue hanging arm sling. 3. Continue to follow up with Dr. Ted Stuart on 02/10/2017 which is next Thursday. 4. Continue DVT and stress ulcer prophylaxis. 5. Continue decubitus precautions. 6. Up and out of bed as much as possible. 7. Continue to encourage the patient to eat. 8. Continue physical therapy and occupational therapy with correction.
[2017-02-05] MEDS: traMADol HCl 50 MG TAB PO PRN ×2 (04:47→20:38)
[2017-02-05] MEDS: Levothyroxine Sodium 125 MCG TAB PO SCH (04:47)
[2017-02-05] MEDS: Gabapentin 100 MG CAP PO SCH ×2 (09:25→20:38)
[2017-02-05] MEDS: Famotidine 20 MG TAB PO SCH ×2 (09:25→20:38)
[2017-02-05] MEDS: GLUCOSAMINE 500 MG PO SCH (09:25)
[2017-02-05] MEDS: Naproxen 500 MG TAB PO SCH ×2 (09:25→20:38)
--- NOTE | 2017-02-05 10:24 | PRG ---
DATE OF SERVICE: 02/05/2017 HISTORY OF PRESENT ILLNESS: Ms. Navarrete is a very pleasant 89-year-old white female that [place] [facility] [place] and had a left proximal humerus fracture and was placed in a hanging arm sling. She also had a la ceration to her left forehead or chin. She has actually done very well. She is in physical therapy . She still seems to be somewhat weak and had balance problems and really needs to have her cane at all times. Her strength is much better. She is walking better and bounces better. Her left arm d oes not hurt as much and she continues to do physical therapy and occupational therapy. I did make an referral to [facility], but apparently there not taking [employer] until the week of February 16, so we will refer her either to [facility] or to [facility] [place] for home health. She will ne ed physical therapy and occupational therapy. She has no complaints today, states she is doing much better and is ready to go home and I admonishe d her to make sure that she does not go anywhere without her cane. OBJECTIVE: VITAL SIGNS: This morning reveals blood pressure 119/59, pulse 68-88, respirations 16-20, O2 sat 96 %-99%, T-max is 98.2. GENERAL: This is a well-developed, well-nourished, very pleasant white female, in no apparent distr ess at this time. HEENT: Reveals normocephalic, nontraumatic cranium. Pupils are equal, round, and reactive to light . Extraocular movements intact. Nose and throat are slightly dry. NECK: Supple, without masses, nodes or bruits. CHEST: Clear to auscultation. No rales, rhonchi or wheezes are heard. CARDIOVASCULAR: Heart reveals a regular rate and rhythm without murmurs, gallops or rubs. ABDOMEN: Obese, soft, nontender, without organomegaly, normal bowel sounds are noted. No rebound o r guarding is noted. : Deferred. EXTREMITIES: Reveal no clubbing, cyanosis or edema. ASSESSMENT: 1. Proximal humeral neck fracture on the left side, presently hanging arm sling with much less pain . 2. Peripheral neuropathy. 3. Degenerative joint disease. 4. Generalized weakness. 5. Osteoporosis. 6. Hypothyroidism. 7. Poor balance, much improved. 8. Status post shingles pain on the forehead, requiring p.r.n., gabapentin. PLAN: 1. The patient will be discharged tomorrow. 2. Dr. Lin will see the patient tomorrow and make sure that she gets discharged without any pr oblems. She is to go home around 2:00 later. 3. Hanging arm sling. 4. Continue follow with Dr. Ted Stuart on 02/10/2017, which is next Thursday. 5. Continue deep venous thrombosis and stress ulcer prophylaxis. 6. Continue decubitus precautions. 7. Out of bed as much as possible. 8. Encourage the patient to eat.
[2017-02-05 20:43] VITALS: BP 120/58; TEMP 96.4
[2017-02-06] MEDS: Polyethylene Glycol 3350 17 GM Packet PO PRN (01:23)
[2017-02-06] MEDS: Levothyroxine Sodium 125 MCG TAB PO SCH (06:09)
[2017-02-06] MEDS: Naproxen 500 MG TAB PO SCH (09:00)
[2017-02-06] MEDS: Famotidine 20 MG TAB PO SCH (09:00)
[2017-02-06] MEDS: Gabapentin 100 MG CAP PO SCH (09:00)
[2017-02-06] MEDS: GLUCOSAMINE 500 MG PO SCH (09:23)
== END 2017-02-06 13:30 | disposition home health service (06) | DRG 948 ==
LOC: NAV ACUTE 11:16
PROVIDERS: ADMIT Family Medicine; ATTEND Family Medicine
DX: R53.1 Weakness (principal); B02.9 Zoster without complications; G62.9 Polyneuropathy, unspecified; E03.9 Hypothyroidism, unspecified; M19.90 Unspecified osteoarthritis, unspecified site; S42.202D Unspecified fracture of upper end of left humerus, subsequent encounter for fracture with routine healing; W19.XXXD Unspecified fall, subsequent encounter; Z88.0 Allergy status to penicillin; M81.0 Age-related osteoporosis without current pathological fracture; K59.00 Constipation, unspecified; R26.81 Unsteadiness on feet
CPT/HCPCS: 36415; 80053; 85025

== ENCOUNTER 2017-03-24 08:27 | Outpatient (CLI) | payer MEDICARE ==
[2017-03-24 12:59] LABS: #Basophils 0.1 thou/uL (0.0-0.2); #Eosinphils 0.1 thou/uL (0.0-0.7); #Lymphocytes 0.5 thou/uL (1.20-3.40); #Monocytes 0.4 thou/uL (0.11-0.59); #Neutrophils 3.4 thou/uL (1.40-6.50); %Basophils 1.4 % (0.0-1.0); %Eosinophils 2.9 % (0.0-10.0); %Lymphocytes 10.8 % (21.0-51.0); %Monocytes 8.9 % (0.0-10.0); Hemoglobin 12.5 g/dL (12.0-16.0); Mean Corpuscular HGB CONC 31.7 g/dL (32.0-36.0); Mean Corpuscular Hemoglobin 30.9 pg (27.0-31.0); Mean Corpuscular Volume 97.5 fl (81.0-99.0); Mean Platelet Volume 7.8 fL (7.4-10.4); Platelet Count 161 thou/uL (130-400); Red Blood Cell (RBC) Count 4.05 mill/uL (4.20-5.40); White Blood Cell (WBC) Count 4.5 thou/uL (4.8-10.8)
[2017-03-24 13:23] LABS: ALT (SGPT) 15 U/L (8-55); AST (SGOT) 19 U/L (5-34); Albumin 4.2 g/dL (3.4-4.8); Alkaline Phosphatase 71 U/L (40-150); Anion Gap 16 mmol/L (10-20); BUN (Urea Nitrogen) 30 mg/dL (9.8-20.1); Bilirubin, Direct 0.3 mg/dL (0.1-0.3); Bilirubin, Total 0.8 mg/dL (0.2-1.2); Calc. Creatinine Clearance 0 mL/min (70-130); Carbon Dioxide 24 mmol/L (23-31); Cardiac Risk 2.2 (Less than 4.5); Chloride 107 mmol/L (98-107); Cholesterol 134 mg/dl (< 200 Desired); Estimated GFR-MDRD 69; Glucose 83 mg/dL (83-110); HDL Cholesterol 62 mg/dL (>60 Neg Risk); LDL Cholesterol, Calculated 62 mg/dL; Potassium 4.2 mmol/L (3.5-5.1); Protein, Total 6.4 g/dL (6.0-8.3); Sodium 143 mmol/L (136-145); Triglycerides 48 mg/dL (Less than 150)
[2017-03-24 13:45] LABS: Hemoglobin A1c 5.4 % (4.0-6.0)
== END 2017-03-24 08:28 | disposition home or self-care (01) ==
LOC: NAVSJIPCSP 08:27
PROVIDERS: ATTEND Family Medicine
DX: E03.9 Hypothyroidism, unspecified (principal); Z79.899 Other long term (current) drug therapy
CPT/HCPCS: 36415; 80048; 80061; 80076; 83036; 84443; 85025

== ENCOUNTER 2017-07-28 10:14 | Outpatient (CLI) | payer MEDICARE, OTHER ==
[2017-07-28 13:21] LABS: #Basophils 0.1 thou/uL (0.0-0.2); #Eosinphils 0.2 thou/uL (0.0-0.7); #Lymphocytes 0.7 thou/uL (1.20-3.40); #Monocytes 0.4 thou/uL (0.11-0.59); #Neutrophils 2.7 thou/uL (1.40-6.50); %Basophils 1.6 % (0.0-1.0); %Eosinophils 4.4 % (0.0-10.0); %Lymphocytes 16.6 % (21.0-51.0); %Monocytes 10.3 % (0.0-10.0); %Neutrophils 67.1 % (42.0-75.0); Hemoglobin 12.1 g/dL (12.0-16.0); Mean Corpuscular HGB CONC 31.4 g/dL (32.0-36.0); Mean Corpuscular Hemoglobin 30.8 pg (27.0-31.0); Mean Corpuscular Volume 97.8 fl (81.0-99.0); Mean Platelet Volume 6.9 fL (7.4-10.4); Platelet Count 170 thou/uL (130-400); RBC Distribution Width 12.2 % (11.5-14.5); Red Blood Cell (RBC) Count 3.93 mill/uL (4.20-5.40)
[2017-07-28 13:38] LABS: ALT (SGPT) 6 U/L (8-55); AST (SGOT) 15 U/L (5-34); Albumin 4.2 g/dL (3.4-4.8); Alkaline Phosphatase 80 U/L (40-150); Anion Gap 17 mmol/L (10-20); BUN (Urea Nitrogen) 25 mg/dL (9.8-20.1); Bilirubin, Direct 0.4 mg/dL (0.1-0.3); Bilirubin, Total 0.9 mg/dL (0.2-1.2); Calc. Creatinine Clearance 0 mL/min (70-130); Calcium 9.3 mg/dL (7.8-10.44); Carbon Dioxide 21 mmol/L (23-31); Cardiac Risk 2.2 (Less than 4.5); Chloride 106 mmol/L (98-107); Cholesterol 128 mg/dl (< 200 Desired); Estimated GFR-MDRD 72; Glucose 87 mg/dL (83-110); HDL Cholesterol 58 mg/dL (>60 Neg Risk); LDL Cholesterol, Calculated 58 mg/dL; Potassium 4.3 mmol/L (3.5-5.1); Protein, Total 6.2 g/dL (6.0-8.3); Sodium 140 mmol/L (136-145); Triglycerides 61 mg/dL (Less than 150)
[2017-07-28 14:06] LABS: Hemoglobin A1c 5.3 % (4.0-6.0)
== END 2017-07-28 10:15 | disposition home or self-care (01) ==
LOC: NAVSJIPCSP 10:14
PROVIDERS: ATTEND Family Medicine
DX: E03.9 Hypothyroidism, unspecified (principal); R25.9 Unspecified abnormal involuntary movements; M19.90 Unspecified osteoarthritis, unspecified site; I49.9 Cardiac arrhythmia, unspecified; R53.83 Other fatigue; B02.29 Other postherpetic nervous system involvement; Z79.899 Other long term (current) drug therapy
CPT/HCPCS: 36415; 80048; 80061; 80076; 83036; 84443; 85025